=== PATIENT | female | born 1935 | race African-American/Black ===

== ENCOUNTER → 2017-01-21 | Day surgery (SDC) | payer MEDICARE, MEDICAID ==
--- NOTE | 2017-01-03 09:48 | Anethesia Preoperative Eval ---
Anesthesia Pre-op PMH/ROS General Date of Evaluation: Jan 03, 2017 Anesthesiologist: Lito ASA Score: ASA 2 Mallampati Score Class I : Soft palate, uvula, fauces, pillars visible Class II: Soft palate, uvula, fauces visible Class III: Soft palate, base of uvula visible Class IV: Only hard plate visible Mallampati Classification: Class III Surgeon: Tesha Diagnosis: Right cataract Surgical Procedure: Right cataract extraction with IOL Anesthesia History: none Family History: no anesthesia problems Allergies: Coded Allergies: ACETAMINOPHEN (Verified Allergy, Mild, 12/31/16) CODEINE (Verified Allergy, Mild, 12/31/16) HYDROCODONE (Verified Allergy, Mild, 12/31/16) Medications: see eMAR Anesthesia Pre-op Phys. Exam Physician Exam see chart Constitutional: NAD Cardiovascular: RRR Respiratory: CTA Airway Exam Mallampati Score: Class II MO: full ROM: full Anesthesia Pre-op A/P Labs see chart Risk Assessment & Plan Assessment: ASA III Plan: MAC Status Change Before Surgery: No Pre-Antibiotics Drug: N/A FELICIA CASTANO M.D. Jan 03, 2017 09:48
--- NOTE | 2017-01-19 16:31 | Pre-Procedure Note/Attestation ---
Pre-Procedure Note/Attestation Complete Prior to Procedure Planned Procedure: right Procedure Narrative: phaco with IOL Indications for Procedure Pre-Operative Diagnosis: cataract Attestation I attest that I discussed the nature of the procedure; its benefits; risks and complications; and alternatives (and the risks and benefits of such alternatives ), prior to the procedure, with the patient (or the patient's legal inside sales account representative). I attest that, if there was a reasonable possibility of needing a blood transfusion, the patient (or the patient's legal inside sales account representative) was given the [facility] standardized written summary, pursuant to the Harsha Woolrich Blood Safety Act ([place] Health and Safety Code # 1645, as amended). I attest that I re-evaluated the patient just prior to the surgery and that there has been no change in the patient's H&P, except as documented below: JAYDA FELIX Jan 19, 2017 16:31
--- NOTE | 2017-01-19 16:37 | Opthalmology H&P ---
Ophthalmology H&P H&P Chief Complaint: decreased vision in right eye HPI Vision Affects Ability to: read, focus/use eyes together HPI Narrative blurry vision Exam Visual Acuity: OD: 20/60 OS: 20/60 Tension: OD; 18 OSD;19 Eye Exam: normal OU: anterior chambers, corneas, external exam, fundus exam, levator function, marginal reflex distance, palpebral fissure-width, findings: lens - OD; NS OS; NS Assessment/Plan Diagnosis: (1) Cataract Treatment Plan: cataract extraction w/ lens implant Goals of Treatment: improvement of vision, enhance quality of life Attestation Attestation The risks and benefits of the surgery as well as alternative procedures were explained to the patient in detail. JAYDA FELIX Jan 19, 2017 16:37
[2017-01-21] VITALS (7 sets, daily range): BP systolic 108–140; BP diastolic 50–77
[~2017-01-21] VITALS: Ht 177.8 cm; Wt 90.3 kg
[~2017-01-21] MED LIST: AMLODIPINE BESY10 MG ORAL; ASPIR 8181 MG ORAL; Akten 3.5% 1ml Btl RIGHT EYE ONE; Alfentanil 2ml Inj ONE; BENAZEPRIL HCL20 MG ORAL; BSS 15ml BTL ONE; BSS 500ml btl ONE; CELEBREX200 MG ORAL; CLOPIDOGREL75 MG ORAL; Cyclopentolate 1% Opth Sol RIGHT EYE SCH; Diclofenac Sod 0.1% Op Soln RIGHT EYE SCH; EPINEPHrine 1mg/1ml Amp ONE; HYDROCHLOROTH12.5 M2 ORAL; LR 1000ml ONE; Lidocaine 1% MPF 10mg/ml 5ml ONE; Midazolam 2mg/2ml Inj ONE; NEXIUM40 MG ORAL; NS Irrig 1000ml ONE; Phenylephrine 10% Opth Soln 5ml RIGHT EYE SCH; Povidone-Iodine 5% opth solution ONE; Propofol 10mg/ml 20ml IV ONE; RESTASIS1 EACH BOTH EYES; Sodium Hyaluronate 14 mg/ml 0.85ml ONE; Sterile Water Irrig 1000ml IRRIG ONE; THEOPHYLLINE400 MG PO; Tropicamide 1% Opth Soln RIGHT EYE SCH
[2017-01-21] MEDS: Tropicamide 1% Opth Soln RIGHT EYE SCH ×3 (07:53→08:11)
[2017-01-21] MEDS: Phenylephrine 10% Opth Soln 5ml RIGHT EYE SCH ×3 (07:53→08:11)
[2017-01-21] MEDS: Cyclopentolate 1% Opth Sol RIGHT EYE SCH ×3 (07:54→08:11)
[2017-01-21] MEDS: Diclofenac Sod 0.1% Op Soln RIGHT EYE SCH ×3 (07:54→08:12)
--- NOTE | 2017-01-21 09:13 | Anethesia Preoperative Eval ---
Anesthesia Pre-op PMH/ROS General Date of Evaluation: Jan 21, 2017 Time of Evaluation: 09:03 Anesthesiologist: Surya ASA Score: ASA 3 Mallampati Score Class I : Soft palate, uvula, fauces, pillars visible Class II: Soft palate, uvula, fauces visible Class III: Soft palate, base of uvula visible Class IV: Only hard plate visible Mallampati Classification: Class II Surgeon: Tesha Diagnosis: Cat OD Surgical Procedure: Cat Ext IOL OD Family History: no anesthesia problems Allergies: Coded Allergies: ACETAMINOPHEN (Verified Allergy, Mild, 12/31/16) CODEINE (Verified Allergy, Mild, 12/31/16) HYDROCODONE (Verified Allergy, Mild, 12/31/16) Medications: see eMAR Past Medical History Cardiovascular: Reports: CAD, HTN, arrhythmia - AFib Gastrointestinal/Genitourinary: Reports: GERD HEENT: Reports: cataract (L), cataract (R), glaucoma PSxH Narrative: R,L,TKR, Hemorrhoidectomy Anesthesia Pre-op Phys. Exam Physician Exam Last Vital Signs Date Time Temp Pulse Resp B/P Pulse Ox O2 Delivery O2 Flow Rate FiO2 01/21/17 07:50 98.1 52 18 108/50 99 Room Air Constitutional: NAD Neurologic: CN 2-12 intact Cardiovascular: RRR Respiratory: CTA Gastrointestinal: S/NT/ND Airway Exam Mallampati Score: Class II MO: limited ROM: limited Teeth: missing Anesthesia Pre-op A/P Risk Assessment & Plan Assessment: ASA 3 Plan: GA Status Change Before Surgery: No Dewey London MD Jan 21, 2017 09:13
--- NOTE | 2017-01-21 09:29 | Immediate Post-Op Evaluation ---
Immediate Post-Op Evalulation Immediate Post-Op Evalulation Procedure: Cat Ext IOL OD Date of Evaluation: Jan 21, 2017 Time of Evaluation: 09:59 IV Fluids: 400 LR Blood Products: 0 Estimated Blood Loss: 1 Urinary Output: 0 Blood Pressure Systolic: 140 Blood Pressure Diastolic: 77 Pulse Rate: 54 Respiratory Rate: 16 O2 Sat by Pulse Oximetry: 100 Temperature (Fahrenheit): 97.8 Pain Score (1-10): 1 Nausea: No Vomiting: No Complications 0 Patient Status: awake, reacts, patent, none Hydration Status: adequate Dewey London MD Jan 21, 2017 09:29
--- NOTE | 2017-01-21 09:31 | 48 Hour Post Anesthesia Eval ---
Post Anesthesia Evaluation Procedure: Cat Ext IOL OD Date of Evaluation: Jan 21, 2017 Time of Evaluation: 12:03 Blood Pressure Systolic: 134 0: 78 Pulse Rate: 54 Respiratory Rate: 18 Temperature (Fahrenheit): 97.8 O2 Sat by Pulse Oximetry: 98 Airway: patent Nausea: No Vomiting: No Pain Intensity: 1 Hydration Status: adequate Cardiopulmonary Status: Stable Mental Status/LOC: patient returned to baseline Follow-up Care/Observations: 0 Post-Anesthesia Complications: 0 Follow-up care needed: ready to discharge Dewey London MD Jan 21, 2017 09:31
--- NOTE | 2017-01-22 10:33 | Brief Operative Note ---
Immediate Post Operative Note Operative Note Chief Complaint: blurry vison Pre-op Diagnosis: cataract Procedure: planned cataract surgery, od Post-op Diagnosis: cataract Post-op Diagnosis: same as pre-op Findings: consistent w/pre-op dx studies Surgeon: Tesha Anesthesiologist: Bryan Anesthesia: MAC Specimen: none Complications: none Condition: stable Estimated Blood Loss: none Drains: none Implant(s) used?: No JAYDA FELIX Jan 22, 2017 10:33
--- NOTE | 2017-01-22 10:44 | Operative Note - PDOC ---
Operative Note Operative Note Date of Operation/Procedure: Jan 21, 2017 Chief Complaint: blurry vison Pre-op Diagnosis: cataract Procedure: planned cataract surgery, od Post-op Diagnosis: cataract Post-op Diagnosis: same as pre-op Operative Findings: consistent w/pre-op dx studies Surgeon: Tesha Anesthesiologist: Bryan Anesthesia: MAC Specimen: none Complications: none Condition: stable Estimated Blood Loss: none Drains: none Implant(s) used?: No Indications for Procedure cataract Description of Procedure This patient has been complaining visually significant cataract in the affected eye with the best corrected visual acuity under moderate glare conditions worse. The patient complains of difficulties with glare in performing activities of daily living and wants to manage personal affairs with comfort and accuracy and see well enough to move with safety at home and outdoors. The risks, benefits and alternatives of the procedure were discussed with the patient in the office prior to scheduling surgery. All questions from the patient were answered after the surgical procedure was explained in detail. The risks of the procedure as explained to the patient include, but are not limited to, pain, infection, bleeding, loss of vision, retinal detachment, need for further surgery, loss of lens nucleus, double vision, etc. Alternative procedures were discussed which include, to do nothing or seek a second opinion. Informed consent for this procedure was obtained from the patient. The patient was referred to a primary care physician for a cardiopulmonary clearance prior to surgery, after proper evaluation was done patient was properly scheduled for outpatient surgery. The patient was brought to the operating room where the anesthesiologist established I.V. lines and cardiac monitoring leads. Mild intravenous sedation was administered.The patient was then prepared with a 5% solution of povidone- iodine to the conjunctival fornix and lashes, and a 10% solution of povidone- iodine to the lids and periorbital skin. The patient was then draped in the usual sterile fashion. 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 No other procedures were done The lid speculum were then removed. The patient was taken to the recovery room in stable condition. There were no complications. . The patient was then transferred to the ambulatory surgery unit in stable and satisfactory condition , was given detailed written instructions and asked to follow up in the office the next day and was advised that will be reffered to another facility for re evaluation and management of her ocular condition.. ~ JAYDA FELIX Jan 22, 2017 10:44
== END | disposition home or self-care (01) ==
LOC: SUR 06:44
DX: H26.9 Unspecified cataract (principal); Z53.09 Procedure and treatment not carried out because of other contraindication; H17.9 Unspecified corneal scar and opacity; I12.9 Hypertensive chronic kidney disease with stage 1 through stage 4 chronic kidney disease, or unspecified chronic kidney disease; N18.3 Chronic kidney disease, stage 3 (moderate); I65.29 Occlusion and stenosis of unspecified carotid artery; I49.9 Cardiac arrhythmia, unspecified; E66.9 Obesity, unspecified; G58.9 Mononeuropathy, unspecified; N28.1 Cyst of kidney, acquired; E78.5 Hyperlipidemia, unspecified; Z96.653 Presence of artificial knee joint, bilateral; Z90.710 Acquired absence of both cervix and uterus; Z88.6 Allergy status to analgesic agent; Z88.5 Allergy status to narcotic agent
CPT/HCPCS: 66850; J0171; J2250; J2704; J3370; J3490; J7120; 94003; 94150